=== PATIENT | female | born 1965 | race Caucasian/White ===

== ENCOUNTER → 2020-05-27 09:17 | Outpatient (BNVA) | payer OTHER, SELFPAY | PROVIDERS: PCP Internal Medicine; Visit Provider Nurse Practitioner ==

== ENCOUNTER → 2020-11-04 11:15 | Outpatient (BNVA) | payer OTHER, SELFPAY | PROVIDERS: PCP Internal Medicine | DX: N81.10 Cystocele, unspecified (principal) | CPT/HCPCS: 99202 ==

== ENCOUNTER → 2020-11-18 09:13 | Outpatient (BNVA) | payer OTHER, SELFPAY | PROVIDERS: PCP Internal Medicine; Visit Provider Nurse Practitioner ==

== ENCOUNTER 2021-02-08 10:15 | Outpatient (REF) | payer OTHER, SELFPAY ==
--- NOTE | ~2021-02-08 | MM_ITS ---
EXAMINATION: MM SCREENING DIGITAL BREAST TOMOSYNTHESIS, BILATERAL CLINICAL INFORMATION: Screening. Asymptomatic. The lifetime risk of breast cancer based on the Tyrer-Cuzick Model is 7%. COMPARISON: Mammography: 01/15/2020, 01/09/2019, 10/11/2017 TECHNIQUE: Digital breast tomosynthesis is performed in both the craniocaudal and mediolateral oblique views along with computer-aided detection (CAD). Synthesized 2D images are generated from the tomosynthesis. FINDINGS: There are scattered areas of fibroglandular density (ACR BI-RADS breast composition Category b). There are no significant masses, abnormal calcifications, or other abnormalities. The axilla and skin contours are unremarkable. No significant changes. MM/MM tomosynthesis screening BI IMPRESSION: No mammographic evidence of malignancy. ASSESSMENT: BI-RADS 1: Negative RECOMMENDATION: Routine annual mammography screening. This patient's information was entered into a reminder system with a target due date for their next mammogram.
== END 2021-02-08 10:16 | disposition home or self-care (01) ==
LOC: HO.MAMMO 10:15
PROVIDERS: Visit Provider Internal Medicine
DX: Z12.31 Encounter for screening mammogram for malignant neoplasm of breast (principal)
CPT/HCPCS: 77063; 77067

== ENCOUNTER 2021-04-10 16:41 | Outpatient (REF) | payer OTHER, SELFPAY ==
--- NOTE | ~2021-04-10 | XR_ITS ---
EXAMINATION: XR CERVICAL SPINE CLINICAL INFORMATION: Cervicalgia COMPARISON: None TECHNIQUE: 4 views of the cervical spine FINDINGS: The craniocervical junction is normal. The dens and atlantodental articulation are intact. The cervical vertebra have normal height. Alignment is normal. No fracture, subluxation or prevertebral soft tissue swelling. The disc spaces are normal. No evidence of degenerative disc disease. The facet joints are unremarkable. The visualized lung apices are normal. XR/XR cervical spine 3V IMPRESSION: No significant findings. No evidence of cervical spine degenerative disc disease, fracture or malalignment.
== END 2021-04-10 16:42 | disposition home or self-care (01) ==
LOC: HO.HMGCX 16:41
PROVIDERS: Visit Provider Physician Assistant Medical
DX: M54.2 Cervicalgia (principal)
CPT/HCPCS: 72040

== ENCOUNTER 2021-04-28 07:15 | Outpatient (REF) | payer OTHER, SELFPAY ==
[2021-04-28 07:46] LABS: Hematocrit 39.3 % (37.0-47.0); Hemoglobin 12.7 g/dl (12.0-16.0); Mean Corpuscular HGB Conc 32.3 g/dl (31.0-35.0); Mean Corpuscular Hemoglobin 26.2 pg (27.0-33.0); Mean Corpuscular Volume 81.2 fL (80.0-98.0); Mean Platelet Volume 9.8 fL (9.4-12.3); Platelet Count 323 X10*3/uL (160-400); Red Blood Count 4.84 X10*6/uL (4.20-5.50); Red Cell Distribution Width 13.8 % (11.0-16.0)
[2021-04-28 08:13] LABS: Anion Gap 9 (12-20); Blood Urea Nitrogen 15 mg/dL (9-16); Calcium 9.4 mg/dL (8.4-10.2); Carbon Dioxide 28 mmol/L (22-29); Chloride 108 mmol/L (96-108); Cholesterol 206 mg/dL; Estimated Glomerular Filt Rate > 60; Glucose Fasting 97 mg/dL (60-99); HDL Cholesterol 49 mg/dL; LDL Cholesterol Calculated 143 mg/dl; Potassium 4.2 mmol/L (3.3-5.1); Sodium 141 mmol/L (135-145); Triglycerides 70 mg/dL
[2021-04-28 08:46] LABS: Appearance Urine CLEAR; Color Urine YELLOW; Glucose Urine UA NEG (NEG); Leukocyte Esterase Urine NEG (NEG); Nitrite Urine NEG (NEG); Specific Gravity - Urine 1.025 (1.005-1.025); Urine Blood NEG (NEG); Urine Ketones NEG (NEG); Urine Protein NEG (NEG-TRACE)
== END 2021-04-28 07:16 | disposition home or self-care (01) ==
LOC: HO.LAB 07:15
PROVIDERS: PCP Internal Medicine; Visit Provider Nurse Practitioner Family
DX: Z00.00 Encounter for general adult medical examination without abnormal findings (principal); E78.00 Pure hypercholesterolemia, unspecified; M54.50 Low back pain, unspecified; M79.604 Pain in right leg; M79.605 Pain in left leg; I10 Essential (primary) hypertension
CPT/HCPCS: 36415; 80048; 80061; 81003; 85027

== ENCOUNTER 2022-02-13 08:04 | Outpatient (REF) | payer OTHER, SELFPAY ==
--- NOTE | ~2022-02-13 | MM_ITS ---
EXAMINATION: MM SCREENING DIGITAL BREAST TOMOSYNTHESIS, BILATERAL CLINICAL INFORMATION: Screening. Asymptomatic. The lifetime risk of breast cancer based on the Tyrer-Cuzick Model is 7%. COMPARISON: Mammography: 02/08/2021, 01/15/2020, 01/09/2019, 10/11/2017 TECHNIQUE: Digital breast tomosynthesis is performed in both the craniocaudal and mediolateral oblique views along with computer-aided detection (CAD). Synthesized 2D images are generated from the tomosynthesis. FINDINGS: There are scattered areas of fibroglandular density (ACR BI-RADS breast composition Category b). There are no significant masses, abnormal calcifications, or other abnormalities. Stromal markings are stable. No developing density. The axilla and skin contours are unremarkable. No significant changes. MM/MM tomosynthesis screening BI IMPRESSION: No mammographic evidence of malignancy. ASSESSMENT: BI-RADS 1: Negative RECOMMENDATION: Routine annual mammography screening. This patient's information was entered into a reminder system with a target due date for their next mammogram.
== END 2022-02-13 08:05 | disposition home or self-care (01) ==
LOC: HO.MAMMO 08:04
PROVIDERS: PCP Internal Medicine; Visit Provider Internal Medicine
DX: Z12.31 Encounter for screening mammogram for malignant neoplasm of breast (principal)
CPT/HCPCS: 77063; 77067

== ENCOUNTER 2023-02-19 07:46 | Outpatient (REF) | payer OTHER, SELFPAY | END 2023-02-19 07:47 | disposition home or self-care (01) | LOC: HO.MAMMO 07:46 | PROVIDERS: PCP Internal Medicine; Visit Provider Internal Medicine | DX: Z12.31 Encounter for screening mammogram for malignant neoplasm of breast (principal) | CPT/HCPCS: 77063; 77067 ==

== ENCOUNTER → 2023-02-19 08:00 | Outpatient (BNV) | payer OTHER, SELFPAY | PROVIDERS: PCP Internal Medicine; Visit Provider Radiology Diagnostic Radiology | DX: Z12.31 Encounter for screening mammogram for malignant neoplasm of breast (principal) | CPT/HCPCS: 77063; 77067 ==

== ENCOUNTER 2024-02-25 07:53 | Outpatient (REF) | payer OTHER, SELFPAY ==
--- NOTE | ~2024-02-25 | MM_ITS ---
EXAMINATION: MM SCREENING DIGITAL BREAST TOMOSYNTHESIS, BILATERAL CLINICAL INFORMATION: Screening. Asymptomatic. COMPARISON: Mammography: Comparison is made with available priors TECHNIQUE: Digital breast mammography with tomosynthesis is performed in both the craniocaudal and mediolateral oblique views along with computer-aided detection (CAD). FINDINGS: There are scattered areas of fibroglandular density (ACR BI-RADS breast composition Category b). There are no significant masses, abnormal calcifications, or other abnormalities. MM/MM tomosynthesis screening BI IMPRESSION: No mammographic evidence of malignancy. ASSESSMENT: BI-RADS BI-RADS 1 - Negative RECOMMENDATION: Routine annual mammography screening. 1 year F/U This examination should not preclude the clinical evaluation of a suspicious palpable abnormality. This patient's information was entered into a reminder system with a target due date for their next mammogram. Electronically signed by: Yumiko Merino DO 03/07/2024 09:13 AM [facility]
== END 2024-02-25 07:54 | disposition home or self-care (01) ==
LOC: HO.MAMMO 07:53
PROVIDERS: PCP Internal Medicine; Visit Provider Internal Medicine
DX: Z12.31 Encounter for screening mammogram for malignant neoplasm of breast (principal)
CPT/HCPCS: 77063; 77067

== ENCOUNTER → 2024-02-25 08:00 | Outpatient (BNV) | payer OTHER, SELFPAY | PROVIDERS: PCP Internal Medicine; Visit Provider Internal Medicine | DX: Z12.31 Encounter for screening mammogram for malignant neoplasm of breast (principal) | CPT/HCPCS: 77063; 77067 ==

== ENCOUNTER 2025-01-04 11:59 | Outpatient (REF) | payer OTHER, SELFPAY ==
[2025-01-04 13:26] LABS: Appearance Urine Clear; Glucose Urine UA Negative (Negative); PH 5.0 (5.0-9.0); Specific Gravity - Urine >= 1.030 (1.005-1.025); UMIC TRIGGER UACC YES
[2025-01-04 14:09] LABS: UACC Culture Trigger YES
== END 2025-01-04 12:00 | disposition home or self-care (01) ==
LOC: HO.LAB 11:59
PROVIDERS: Nurse Practitioner Family; PCP Internal Medicine
DX: R30.0 Dysuria (principal); Z13.89 Encounter for screening for other disorder
CPT/HCPCS: 81001; 81003; 87086; 99212

== ENCOUNTER 2025-01-04 11:59 | Outpatient (AMB) | payer OTHER, SELFPAY ==
--- NOTE | 2025-01-04 12:00 | MHC.OFFWIV ---
Intake Vital Signs 01/04/25 12:01 Height 5 ft 3 in Weight 184 lb BMI 32.6 BP 100/68 Blood Pressure Location Lt brachial Position Sitting Pulse 76 Pulse Source Pulse Oximeter Temp 98.0 F Temp Source Oral Pulse Oximetry (%) 97 Oxygen Delivery Method Room Air Intake Visit Reasons: EP pain during urination Intake Note: pt presents with dysuria starting yesterday Patient Tobacco Use Status: Never used Tobacco Allergies Penicillins (PENICILLINS) Allergy (Intermediate, Verified 01/04/25 12:07) RASH Do you need a note to return to daycare/school/sports/work: No HPI HPI Comments History of Present Illness Details 59 y/o Female patient who presents to the walk in clinic with c/o Burning with urination since yesterday. Reports Lower abdominal cramping associated with Burning everytime she urinates. Denies Vaginal discharge. Denies Fevers, Chills, Nausea or Vomiting. Pt reports that she is already on Oral Abx for 14 days - she is on second week. Her PCP prescribed them for Unknown infection inside her stomach . No available records for review - she is not [facility] [place] Patient - [facility] P[facility] at [facility]. 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 Review of Systems Const All systems reviewed & are unremarkable except as noted in HPI and below Physical Exam Vital Signs: Last Vital Signs Temp 98.0 F 01/04/25 12:01 Pulse 76 01/04/25 12:01 BP 100/68 01/04/25 12:01 Pulse Ox 97 01/04/25 12:01 Oxygen Delivery Method Room Air 01/04/25 12:01 BMI result Body Mass Index 32.6 Const General: no acute distress Nutritional Appearance: overweight Orientation/consciousness: patient oriented x3 Resp Effort & Inspection: normal respiratory effort Auscultation: clear to auscultation bilaterally Cardio Heart sounds: S1 normal heart sound present and S2 normal heart sound present Other: Deferred Pelvic Exam. General: Yes no CVA tenderness Back/Spine/Pelvis Back: no CVA tenderness Neuro General: patient oriented x3, gait normal and moves all extremities Psych Speech and movement: Normal speech and movement present Results AMB Urinalysis, Automated UA Leukoctes 70 Brian/uL Last Edit by Emani Bryant MA on 01/04/25 12:22 1+ Emani Bryant 01/04/25 12:22 UA Nitrite Negative Last Edit by Emani Bryant MA on 01/04/25 12:22 UA Urobilinogen 0.2 mg/dL Last Edit by Emani Bryant MA on 01/04/25 12:22 UA Protein 15 mg/dL Last Edit by Emani Bryant MA on 01/04/25 12:22 UA pH 6.0 Last Edit by Emani Bryant MA on 01/04/25 12:22 UA Blood 200 Maxi/uL Last Edit by Emani Bryant MA on 01/04/25 12:22 3+ Emani Bryant 01/04/25 12:22 UA Specific Benton 1.030 Last Edit by Emani Bryant MA on 01/04/25 12:22 UA Ketone Negative Last Edit by Emani Bryant MA on 01/04/25 12:22 UA Bilirubin 0 mg/dL Last Edit by Emani Bryant MA on 01/04/25 12:22 UA Glucose 0 mg/dL Last Edit by Emani Bryant MA on 01/04/25 12:22 Results Reviewed Results Reviewed: Laboratory Last Values Urine pH (Auto) 6.0 01/04/25 12:20 Specific Benton (Auto) 1.030 01/04/25 12:20 Urine Protein (Auto) 15 mg/dL H 01/04/25 12:20 Glucose (UA)(Auto) 0 mg/dL 01/04/25 12:20 Urine Ketones (Auto) Negative 01/04/25 12:20 Urine Blood (Auto) 200 Maxi/uL H* 01/04/25 12:20 Urine Nitrite (Auto) Negative 01/04/25 12:20 Urine Bilirubin (Auto) 0 mg/dL 01/04/25 12:20 Urine Urobilinogen (Auto) 0.2 mg/dL 01/04/25 12:20 Leukocyte Esterase (Auto) 70 Brian/uL H* 01/04/25 12:20 Assessment & Plan Assessment & Plan (1) Dysuria: Code(s): R30.0 - Dysuria Plan: Symptoms could possibly from Vaginal Yeast Infection due to current Abx Use. Sent Urine for Culture and Sensitivity. Urinalysis in the office shows; +70 LEUK, + Blood - NIT Orders: Orders AMB Urinalysis Automated Today Tiffany Spears PA-C Z13.9 - Encounter for screening, unspecified UA CC w/rflx Micro + Cult Today Rebeca Wetzel NP R30.0 - Dysuria Medications: New fluconazole TAKE 1 TABLET NOW, MAY REPEAT ANOTHER DOSE IN 3 DAYS (OR 72 HOURS). 150 mg PO DAILY 2 tabs 2RF Rebeca Wetzel NP Coding Level of Care Code Est Pt Level 4 (73578) Diagnoses Dysuria R30.0 Time Spent (min) 20
[2025-01-04 12:01] VITALS: BP 100/68; PULSE 76; TEMP 36.7; O2SAT 97; BMI 32.6
--- OUTSIDE RECORDS SUMMARY | 2025-01-04 14:17 | XMS_ITS | Encounter Summary ---
Author Organization [employer] Address [address] [place] [address] Care Team Providers Care Die Tripper Name Role Phone Unavailable Primary Care Provider Unavailabl e Encounter Details Date Type Department Care Team (Latest Contact Info) Description 06/12/2019 Abstract [facility] CONVERSIONS Dental, Provider, DDS Social History Tobacco Use Types Packs/Day Years Used Date Smoking Tobacco: Never Assessed Comments Unknown Sex and Gender Information Value Date Recorded Sex Assigned at Female 02/16/2022 10:18 AM EDT Legal Sex Female 10:18 AM EDT Gender Identity Female 08/26/2022 10:39 AM EDT Sexual Orientation Straight 12/08/2023 2: 53 PM EDT documented as of this encounter Plan of Treatment Not on file documented as of this encounter Visit Diagnoses Not on filedocumented in this encounter
--- OUTSIDE RECORDS SUMMARY | 2025-01-04 14:17 | XMS_ITS | Clinical Summary ---
Author Organization 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 Active mirtazapine (REMERON) 30 mg tablet Take 1 tablet (30 mg total) by mouth. at bedtime 4 Active prazosin (MINIPRESS) 1 mg capsule Take 1 capsule (1 mg total) by mouth. 4 Active aspirin 81 mg EC tablet Take 1 tablet (81 mg total) by mouth 2 (two) times a day. 180 each 1 5 03/03/20 25 Active nystatin-triamcino lone (MYCOLOG II) cream Apply thin layer to affected area BID for 2 weeks then stop. Avoid face and groin. 30 g 5 Active pantoprazole (PROTONIX) 40 mg EC tablet Take 1 tablet (40 mg total) by mouth 1 (one) time each day before breakfast. Do not crush, chew, or split. 90 each 3 5 09/05/19 26 Active cyclobenzaprine (FLEXERIL) 10 mg tablet Take 1 tablet (10 mg total) by mouth at bedtime as needed for muscle spasms. 30 tablet 5 06/16/19 26 Active celecoxib (CeleBREX) 200 mg capsuleIndications :Status post total right knee replacement Take 1 capsule (200 mg total) by mouth 2 (two) times a day with meals. 60 each 2 5 Active acetaminophen (TYLENOL) 500 mg tabletIndications: Status post total right knee replacement Take 2 tablets (1,000 mg total) by mouth every 8 (eight) hours. 100 each 2 5 Active gabapentin (NEURONTIN) 300 mg capsuleIndications :Status post total right knee replacement Take 1 capsule (300 mg total) by mouth 2 (two) times a day. 60 each 2 5 Active betamethasone dipropionate (DIPROSONE) 0.05 % creamIndications:E czema of lower leg Apply topically 2 (two) times a day. 30 g 2 5 10/24/19 26 Active rizatriptan (MAXALT) 10 mg tablet Take 1 tablet (10 mg total) by mouth 1 (one) time each day if needed for migraine. May repeat in 2 hours if needed - 9 tablet 1 5 Active bisacodyL (DULCOLAX) 5 mg EC tablet Take 2 tablets (10 mg total) by mouth at bedtime. 180 tablet 5 Active diclofenac (VOLTAREN) 1 % topical gel Apply 4 g topically 4 (four) times a day. 100 g 2 5 Active ondansetron (ZOFRAN) 8 mg tablet Take 1 tablet (8 mg total) by mouth every 8 (eight) hours if needed for nausea or vomiting. 20 tablet 5 Active metroNIDAZOLE (FLAGYL) 500 mg tabletIndications: Helicobacter pylori gastritis Take 1 tablet (500 mg total) by mouth 2 (two) times a day for 14 days. Do not use mouth wash or consume alcohol until 48 hours after last dose 28 each 5 01/11/20 25 Active tetracycline (ACHROMYCIN,SUMYCI N) 500 mg capsuleIndications :Helicobacter pylori gastritis Take 1 capsule (500 mg total) by mouth 4 (four) times a day for 14 days. Avoid sun while taking 56 capsule 5 01/11/20 25 Active omeprazole (PriLOSEC) [address] capsuleIndications :Helicobacter pylori gastritis Take 1 capsule (40 mg total) by mouth 2 (two) times a day for 14 days. Do not crush or chew. 28 each 5 01/11/20 25 Active bismuth subsalicylate (PEPTO BISMOL) 262 mg chewable tabletIndications: Helicobacter pylori gastritis Chew 2 tablets (524 mg total) 4 (four) times a day for 14 days. 112 each 5 01/11/20 25 Active Active Problems Problem Noted Date Diagnosed Date Pre-syncope 08/21/2024 Intertrigo 08/21/2024 Status post total right knee replacement 024 Assessment & Plan (11/09/2024 4:01 PM EDT): OA of both knees, underwent a TKR in July, complains of persistent pain. She follows with ortho. Takes Celebrex as needed. Recommended diclofenac gel to decrease the use of oral NSAIDs. Periodontal disease 02/04/2024 Missing teeth, acquired 02/04/2024 Localized gingival recession 02/04/2024 Dental calculus 02/04/2024 Bleeding gums 02/04/2024 Primary osteoarthritis of left knee 07/12/2023 Primary osteoarthritis of right knee 07/12/2023 Assessment & Plan (11/09/2024 4:01 PM EDT): As above Insomnia 08/04/2021 Migraine without status migrainosus, not intract able 08/04/2021 Other mixed anxiety disorders 08/04/2021 Pain in joint involving ankle and foot 2 Contact dermatitis 09/21/2011 Encounters Date Type Department Care Team Description 01/04/2025 Telephone Adult Medicine [address] [phone] Yudi Mckeon MD 12/28/2024 Telephone Gastroenterology [facility] 175 [facility] [address] [address] Janee Fuentes NP 12/27/2024 Telephone Gastroenterology [facility] 175 [facility] 175 [facility] [address] [place] [address] Jaiden Forman DO 12/26/2024 8:03 AM EDT Anesthesia Event [facility] [address] [place] [address] Jhoan Franks MD 12/26/2024 6:56 AM EDT - 12/26/2024 11:59 PM EDT Hospital Encounter [facility] [address] [place] [address] Jaiden Forman DO Chang, Ling, CRNA Spencer, Mark A, MD Epigastric abdominal pain Discharge Disposition: Home or Self Care 11/20/2024 Telephone Gastroenterology - [place] 175 [facility] 175 [facility] [address] [place] [address] Jaiden Forman DO 11/09/2024 12:00 PM EDT Office Visit Adult Medicine [address] [phone] Yudi Mckeon MD Adult general medical examination (Primary Dx); Encounter for lipid screening for cardiovascular disease; Need for vaccination against Streptococcus pneumoniae; Status post total right knee replacement; Primary osteoarthritis of right knee 11/02/2024 9:00 AM EDT Treatment Outpatient [address] [phone] Leo Velez, PT Acute back pain with sciatica, right (Primary Dx) 10/26/2024 11:30 AM EDT Treatment Outpatient [facility] - [address] [phone] Celeste Khanna, JOB ESTIMATOR Acute back pain with sciatica, right (Primary Dx) 10/23/2024 3:30 PM EDT Treatment Outpatient [address] [phone] Celeste Khanna, JOB ESTIMATOR Acute back pain with sciatica, right (Primary Dx) 10/19/2024 10:30 AM EDT Treatment Outpatient [address] [phone] Celeste Khanna, JOB ESTIMATOR Acute back pain with sciatica, right (Primary Dx) 10/17/2024 10:00 AM EDT Treatment Outpatient [address] [phone] Celeste Khanna, JOB ESTIMATOR Acute back pain with sciatica, right (Primary Dx) 10/16/2024 9:00 AM EDT Consult Gastroenterology [facility] 175 [facility] [address] [address] Janee Fuentes, MEGAN Epigastric abdominal pain (Primary Dx); Constipation, unspecified constipation type; Personal history of hyperplastic colon polyps; Diverticulosis of sigmoid colon 10/16/2024 Telephone Gastroenterology [facility] [address] [address] Janee Fuentes, MEGAN 10/12/2024 3:30 PM EDT Treatment Outpatient [address] [phone] Celeste Khanna, JOB ESTIMATOR Acute back pain with sciatica, right (Primary Dx) 10/10/2024 9:30 AM EDT Treatment Outpatient [address] [phone] Leo Velez, PT Acute back pain with sciatica, right (Primary Dx) 10/06/2024 9:30 AM EDT Treatment Outpatient [address] [phone] Celeste Khanna, JOB ESTIMATOR Acute back pain with sciatica, right (Primary Dx) from Last 3 Months Immunizations Name Administration Dates Next Due Influenza Quadravalent, MDCK , 0.5ml, preservative free (Flucelvax) 6mo and older 01/25/2023 Influenza Quadravalent, MDCK , 0.5ml, with preservative (Flucelvax) 6mo and older 04/21/2021 Pneumococcal conjugate 20 va lent (Prevnar 20, PCV 20) 2mo and older 11/09/2024 Tdap Tetanus diptheria acell ular pertussis (Boostrix; Adacel) 7yo and older 10/29/2023,03/03/2013 Surgical History Surgery Date Site/Laterality Comments OTHER SURGICAL HISTORY PROCEDURE: DENIES PREVIOUS SURGERY HYSTERECTOMY BLADDER SUSPENSION Medical History Medical History Date Comments Migraine headache DX:Migraine he adache Insomnia DX:Insomnia Obesity DX:Obesity Anxiety Joint pain Arthritis Family History Medical History Relation Name Comments Other cancer Neg Hx Social History Tobacco Use Types Packs/Day Years Used Date Smoking Tobacco: Never Smokeless Tobacco: Never Tobacco Cessation:Counseling Given: Not Answered Alcohol Use Standard Drinks/Week Comments Never 0 (1 standard drink = 0.6 oz pur e alcohol) Housing Instability Answer Date Recorde d Are you worried that in the next 2 months you may not have stable housing? No 08/01/2024 Food Access & Nutrition Answer Date Rec orded Do you have access to a vari ety of food including fruits and vegetables? No 08/01/2024 Health Literacy Answer Date Recorded How often do you need to hav e someone help you when you read instructions, pamphlets, or other written material from your doctor or pharmacy? Never 08/01/2024 Caregiver: How often do you need to have someone help you when you read instructions, pamphlets, or other written material from your doctor or pharmacy? Not on file 08/01/2024 Financial Risk Answer Date Recorded How hard is it for you to pa y for the very basics like food, housing, medical care, and air conditioning / heating? Not very hard 08/01/2024 Transportation Answer Date Recorded Has the lack of transportati on kept you from meetings, work, or from getting things needed for daily living? No Has the lack of transportati on kept you from medical appointments or from getting medications? No 08/01/2024 Social Isolation Answer Date Recorded How often do you feel lonely or isolated from th ose around you? Never 08/01/2024 Food Risk Answer Date Recorded Within the past 12 months we worried whether our food would run out before we got money to buy more. Never true 08/01/2024 Within the past 12 months th e food we bought just didn't last and we didn't have money to get more. Never true 08/01/2024 Dependent Care Answer Date Recorded Do you need help finding or paying for care for your loved ones. For example, child adolescent care or elderly care for an older adult? No 08/01/2024 Education Answer Date Recorded Do you think completing more education or training, like finishing a GED, going to college, or learning a trade, would be helpful for you? N/A 08/01/2024 Employment and Income Answer Date Recor ded During the last four weeks, have you been actively looking for work? No 08/01/2024 Living Situation Answer Date Recorded What is your living situation? 0 08/01/2024 Interpersonal Safety Answer Date Record ed Physical Abuse 12/26/2024 Verbal Abuse 12/26/2024 Comments No Sex and Gender Information Value Date Recorded Sex Assigned at Female 03/06/2024 6:08 AM EST Legal Sex Female 6:18 PM EST Gender Identity Female 03/06/2024 6:08 AM EST Sexual Orientation Straight 03/06/2024 6: 08 AM EST Obstetrics History Last Filed Vital Signs Vital Sign Reading Time Taken Comments Blood Pressure 108/78 12/26/2024 8:38 AM EDT Pulse 67 12/26/2024 8:38 AM EDT Temperature 35.9 C (96.7 F) 12/26/2024 8:18 AM EDT Respiratory Rate 17 12/26/2024 8:38 AM EDT Oxygen Saturation 98% 12/26/2024 8:38 AM EDT Inhaled Oxygen Concentration - - Weight 81.6 kg (180 lb) 12/26/2024 7:17 AM EDT Height 160 cm (5' 3 ) 12/26/2024 7:17 AM EDT Body Mass Index 31.89 12/26/2024 7:17 AM EDT Plan of Treatment Upcoming Encounters Date Type Department Care Team (Late st Contact Info) Description 02/05/2025 8:30 AM EDT Office Visit Adult Medicine [address] [phone] Yudi Guillen MD [address] [place] [address] 02/28/2025 9:30 AM EST Office Visit Orthopedic Surgery - [address] [phone] Clem Avelar MD 175 [facility] [address] [place] [address] 04/10/2025 10:30 AM EST Consult Bariatric Surgery - [place] 175 [facility] [address] [place] [phone] Lucie Davis MD [address] [place] [phone] 11/13/2025 3:00 PM EDT Office Visit Adult Medicine [facility] [address] [place] [address] Yudi Guillen MD [address] [place] [address] Health Maintenance Due Date Last Done Comments Cervical Cancer Screening: Pap Smear 10/07/1988 HIV Screening 03/29/2022 Depression Screening 04/19/2024 10/29/2023 COVID-19 Vaccine ( season) 2024 05/29/2021, 12/17/2020, 11/26/2020 Influenza Vaccine (#1) 2024 , 01/25/2023, 04/21/2021, Additional history exists Social Influencers of Health Screening 08/01/2025 08/01/2024 Breast Cancer Screening 02/24/2026 02/25/2024 Colorectal Cancer Screening: Colonoscopy 08/15/2028 08/15/2018, 08/15/2018 Cholesterol Screening (Lipid Panel) 11/17/2029 11/17/2024, 10/29/2023, 10/29/2023 DTaP,Tdap,and Td Vaccines (4 - Td or Tdap) 10/28/2033 10/29/2023, 03/03/2013, 04/08/2006 RSV Immunization Adult Patients (1 - 1-dose 75+ series) 10/07/2042 Hepatitis B Vaccines Completed 01/13/2007, 08/03/2006, 07/01/2006 Hepatitis C Screening Completed 12/05/2021 Zoster Vaccines Completed 01/15/2023, 09/03/2022 Pneumococcal Vaccine: 50+ Years Completed 11/09/2024 HIB Vaccines Aged Out No longer eligi ble based on patient's age to complete this topic HPV Vaccines Aged Out No longer eligi ble based on patient's age to complete this topic Hepatitis A Vaccines Aged Out No long er eligible based on patient's age to complete this topic IPV Vaccines Aged Out No longer eligi ble based on patient's age to complete this topic MMR Vaccines Aged Out No longer eligi ble based on patient's age to complete this topic Meningococcal ACWY Vaccine Aged Out N o longer eligible based on patient's age to complete this topic Meningococcal B Vaccine Aged Out No l onger eligible based on patient's age to complete this topic RSV Immunization Patients Under 20 months Aged Out No longer eligible based on patient's age to complete this topic Varicella Vaccines Aged Out No longer eligible based on patient's age to complete this topic Medical Devices Implanted Type Area Car Washer Device Identifier Shelf Expiration Date Model / Serial / Lot Cement Bone Simplex Full Dose - [employer]one - [id number] Implanted:Qty : 2 on 03/06/2024 by Clem Avelar MD at [facility] Bone Cement Right: Knee [employer] [id number] 02/16/2026 6191-1-001 / NONE / [id number] Knee Psn Fem Ps Cmt Ccr Nrw Sz8 R - [employer]one - [id number] Implanted:Qty : 1 on 03/06/2024 by Clem Avelar MD at 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 Joints Knee Right: Knee [employer] [id number] 12/19/2033 [id number] / NONE / [id number] All Poly Patella 35mm - [employer]one - [id number] Implanted:Qty : 1 on 03/06/2024 by Clem Avelar MD at [facility] Joints Knee Right: Knee [employer] [id number] 09/01/2028 [id number] / NONE / [id number] Knee Psn Asf Ps 12mm Ve R 6-9 Ef - Sn/A - [id number] Implanted:Qty : 1 on 03/06/2024 by Clem Avelar MD at [facility] Joints Knee Right: Knee [employer] [id number] 11/15/2026 [id number] / N/A / [id number] Surgical Mesh Sling Implants Surgical Mesh Sling Implants N/A: Bladder Description:BLADDER MESH Procedures Procedure Name Priority Date/Time Associated Diagnosis Comments EGD Routine 12/26/2024 8:17 AM EDT Epigastric abdominal pain TISSUE EXAM Routine 12/26/2024 8:12 AM EDT Epigastric abdominal pain LIPID PANEL WITH REFLEX TO DIRECT LDL Routine 11/17/2024 7:45 AM EDT Encounter for lipid screening for cardiovascular disease MG MAMMO DIGITAL DIAGNOSTIC BILAT Routine 02/25/2024 7:51 AM EST DEPRESSION SCREENING Routine 10/29/2023 HEPATITIS C SCREENING Routine 12/05/2021 COLONOSCOPY Routine 08/15/2018 from Last 3 Months or Most Recently Relevant to Health Maintenance Results * EGD Anesthesia - MAC; [facility] ENDOSCOPY (12/26/2024 8:17 AM EDT) Anatomical Region Laterality Modality Endoscopy 12/26/2024 7:55 AM EDT Impressions 12/26/2024 8:18 AM EDT - Non-bleeding duodenal ulcers with no stigmata of bleeding. Biopsied. - Normal stomach. Biopsied. Recommendation: - Discharge patient to home. - Resume previous diet. - Continue present medications. - Await pathology results. - Omeprazole 40 mg daily recommended. Today's EGD findings explain her epigastric discomfort. Narrative 12/26/2024 8:18 AM EDT [facility] GI Patient Name: Kathleen Perez Procedure Date: 12/26/2024 7:55 AM Date of : 1965 Age: 59 Gender: Female Note Status: Finalized Attending MD: Jaiden Forman DO, [id number] Procedure Date No Time: 12/26/2024 Procedure: Upper GI endoscopy Indications: Epigastric abdominal pain Providers: Jaiden Forman DO Referring MD: Yudi medina MD Medicines: Monitored Anesthesia Care Complications: No immediate complications. Estimated blood loss: Minimal. Estimated Blood Loss: Estimated blood loss was minimal. Procedure: Pre-Anesthesia Assessment: - - Prior to the procedure, a History and Physical was performed, and patient medications and allergies were reviewed. The patient is competent. The risks and benefits of the procedure and the sedation options and risks were discussed with the patient. All questions were answered and informed consent was obtained. Patient identification and proposed procedure were verified by the physician, the nurse, the anesthesiologist, the sales engineer account manager and the pbx technician in the pre-procedure area in the endoscopy suite. Mental Status Examination: alert and oriented. Airway Examination: normal oropharyngeal airway and neck mobility. Respiratory Examination: clear to auscultation. CV Examination: normal. Prophylactic Antibiotics: The patient does not require prophylactic antibiotics. Prior Anticoagulants: The patient has taken no anticoagulant or antiplatelet agents. ASA Grade Assessment: II - A patient with mild systemic disease. After reviewing the risks and benefits, the patient was deemed in satisfactory condition to undergo the procedure. The anesthesia plan was to use monitored anesthesia care (MAC). Immediately prior to administration of medications, the patient was re-assessed for adequacy to receive sedatives. The heart rate, respiratory rate, oxygen saturations, blood pressure, adequacy of pulmonary ventilation, and response to care were monitored throughout the procedure. The physical status of the patient was re-assessed after the procedure. After obtaining informed consent, the endoscope was passed under direct vision. Throughout the procedure, the patient's blood pressure, pulse, and oxygen saturations were monitored continuously. The Endoscope was introduced through the mouth, and advanced to the third part of duodenum. The upper GI endoscopy was accomplished without difficulty. The patient tolerated the procedure well. Findings: Two non-bleeding superficial duodenal ulcers with no stigmata of bleeding were found in the duodenal bulb. The largest lesion was 4 mm in largest dimension. Biopsies were taken with a cold forceps for histology. The Z-line was irregular and was found 38 cm from the incisors. Biopsies were taken with a cold forceps for histology. Estimated blood loss was minimal. Wide Area Transepithelial Sampling (WATS-3D [place] Biopsy) was performed for histology and samples sent for Computer-Assisted 3-Dimensional analysis. Estimated blood loss was minimal. The stomach was normal. Biopsies were taken with a cold forceps for histology. Estimated blood loss was minimal. Procedure Code(s): --- Professional --- 11225, Esophagogastroduodenoscopy, flexible, transoral; with biopsy, single or multiple Diagnosis Code(s): --- Professional --- K26.9, Duodenal ulcer, unspecified as acute or chronic, without hemorrhage or perforation R10.13, Epigastric pain CPT copyright 2020 [employer]. All rights reserved. The codes documented in this report are preliminary and upon shipping manager review may be revised to meet current compliance requirements. JAIDEN Forman DO 12/26/2024 8:18:11 AM This report has been signed electronically.Jaiden Forman DO Number of Addenda: 0 Note Initiated On: 12/26/2024 7:55 AM Scope In: Scope Out: Endoscopy Department at [facility] - [address] [place] [id number] Procedure Note Jaiden Forman DO - 12/26/2024 [facility] Patient Name: Kathleen Perez Procedure Date: 12/26/2024 7:55 AM Date of : 1965 Age: 59 Gender: Female Note Status: Finalized Attending MD: Jaiden Forman DO, [id number] Procedure Date No Time: 12/26/2024 Procedure: Upper GI endoscopy Indications: Epigastric abdominal pain Providers: Jaiden Forman DO Referring MD: Yudi medina MD Medicines: Monitored Anesthesia Care Complications: No immediate complications. Estimated blood loss: Minimal. Estimated Blood Loss: Estimated blood loss was minimal. Procedure: Pre-Anesthesia Assessment: - - Prior to the procedure, a History and Physicalwas performed, and patient medications and allergieswere reviewed. The patient is competent. The risks and benefits of the procedure and the sedation optionsand risks were discussed with the patient. Allquestions were answered and informed consent was obtained. Patient identification and proposed procedure were verified by the physician, the nurse, the anesthesiologist, the sales engineer account manager and thetechnician in the pre-procedure area in the endoscopy suite. Mental Status Examination: alert and oriented.Airway Examination: normal oropharyngeal airway and neck mobility. Respiratory Examination: clear to auscultation. CV Examination: normal. Prophylactic Antibiotics: The patient does not requireprophylactic antibiotics. Prior Anticoagulants: The patient has taken no anticoagulant or antiplatelet agents. ASA Grade Assessment: II - A patient with mild systemic disease. After reviewing the risks and benefits,the patient was deemed in satisfactory condition to undergo the procedure. The anesthesia plan was touse monitored anesthesia care (MAC). Immediately priorto administration of medications, the patient was re-assessed for adequacy to receive sedatives. The heart rate, respiratory rate, oxygen saturations, blood pressure, adequacy of pulmonary ventilation,and response to care were monitored throughout the procedure. The physical status of the patient was re-assessed after the procedure. After obtaining informed consent, the endoscope was passed under direct vision. Throughout theprocedure, the patient's blood pressure, pulse, and oxygen saturations were monitored continuously. TheEndoscope was introduced through the mouth, and advanced tothe third part of duodenum. The upper GI endoscopy was accomplished without difficulty. The patienttolerated the procedure well. Findings: Two non-bleeding superficial duodenal ulcers withno stigmata of bleeding were found in the duodenalbulb. The largest lesion was 4 mm in largest dimension. Biopsies were taken with a cold forceps forhistology. The Z-line was irregular and was found 38 cm fromthe incisors. Biopsies were taken with a cold forcepsfor histology. Estimated blood loss was minimal. WideArea Transepithelial Sampling (WATS-3D [place] Biopsy) was performed for histology and samples sent for Computer-Assisted 3-Dimensional analysis. Estimated blood loss was minimal. The stomach was normal. Biopsies were taken with a cold forceps for histology. Estimated blood losswas minimal. Procedure Code(s): --- Professional --- 66893, Esophagogastroduodenoscopy, flexible, transoral; with biopsy, single or multiple Diagnosis Code(s): --- Professional --- K26.9, Duodenal ulcer, unspecified as acute or chronic, without hemorrhage or perforation R10.13, Epigastric pain CPT copyright 2020 [employer]. All rights reserved. The codes documented in this report are preliminary and upon shipping manager reviewmay be revised to meet current compliance requirements. AJIDEN Forman DO 12/26/2024 8:18:11 AM This report has been signed electronically.Jaiden Forman DO Number of Addenda: 0 Note Initiated On: 12/26/2024 7:55 AM Scope In: Scope Out: Endoscopy Department at [facility] - [address] [place] [id number] IMPRESSION: - Non-bleeding duodenal ulcers with no stigmata of bleeding. Biopsied. - Normal stomach. Biopsied. Recommendation: - Discharge patient to home. - Resume previous diet. - Continue present medications. - Await pathology results. - Omeprazole 40 mg daily recommended. Today's EGD findings explain her epigastric discomfort. Jaiden Forman DO GI~PROCEDURE ORDERABLES Final Re sult * Tissue exam (12/26/2024 8:12 AM EDT) Final Diagnosis A. Small Intestine, Duodenum, biopsy: - Duodenal mucosa with erosion, acute inflammation, moderate villi blunting, focal foveolar metaplasia, Brayan gland hyperplasia, and prominent reactive lymphoid follicle, compatible with erosive peptic duodenitis. - Negative for increased intraepithelial lymphocytes. B. Stomach, random gastric biopsy: - Gastric antral mucosa with active chronic gastritis. - Helicobacter pylori organisms are morphologically identified. C. Esophagus, G-E junction biopsy: - Cardiac-type columnar mucosa with focal intestinal metaplasia. - Negative for dysplasia. Note: Part C, clinicopathologic correlation is recommended to assess if intestinal metaplasia corresponds to Mistry's mucosa versus gastric mucosa with intestinal metaplasia. 12/27/2024 10:46 AM EDT [facility] Gross Description A. Small Intestine, Duodenum, biopsy: Labeled duodenum biopsy . Received in formalin are three irregular santana mucosal tissue fragments, each measuring approximately 0.1 cm in greatest dimension, which are wrapped in paper and submitted in toto in one cassette, three pieces, multiple levels on one slide. B. Stomach, random gastric biopsy: Labeled stomach random . Received in formalin are two irregular santana mucosal tissue fragments, each measuring approximately 0.3 cm in greatest dimension, which are wrapped in paper and submitted in toto in one cassette, two pieces, multiple levels on one side. C. Esophagus, G-E junction biopsy: Labeled esophagus GE junction . Received in formalin are two irregular pink-white mucosal tissue fragments, each measuring approximately 0.2 cm in greatest dimension, which are wrapped in paper and submitted in toto in one cassette, two pieces, multiple levels on one slide. RJ 12/27/2024 10:46 AM EDT [facility] Disclaimer Unless otherwise specified, all tissue is 10% NB formalin fixed and paraffin embedded. 12/27/2024 10:46 AM EDT [facility] Tissue Duodenal structure / Unknown 12/26/2024 8:12 AM EDT 12/26/2024 10:42 AM EDT Tissue specimen (specimen) Stomach structure / Unknown 12/26/2024 8:13 AM EDT 12/26/2024 10:42 AM EDT Tissue specimen (specimen) Esophageal structure / Unknown 12/26/2024 8:14 AM EDT 12/26/2024 10:42 AM EDT Jaiden Forman DO LAB PATHOLOGY ORDERABLES Final R esult [facility] [address] [place] [address], * (ABNORMAL) Lipid panel with reflex to direct LDL (11/17/2024 7:45 AM EDT) Cholesterol 233(H) 0 - 200 mg/dL LAB CHEMISTRY METHOD 11/17/2024 10:39 AM EDT [facility] Triglycerides 112 0 - 150 mg/dL LAB CHEMISTRY METHOD 11/17/2024 10:39 AM EDT [facility] HDL 51 >=40 mg/dL LAB CHEMISTRY METHOD 11/17/2024 10:39 AM EDT [facility] LDL Calculated 160(H) 0 - 100 mg/dL LAB CHEMISTRY METHOD 11/17/2024 10:39 AM EDT [facility] VLDL Cholesterol Dickson 22.4 mg/dL LAB CHEMISTRY METHOD 11/17/2024 10:39 AM EDT [facility] Non HDL Chol. (LDL+VLDL) 182(H) <145 mg/dL LAB CHEMISTRY METHOD 11/17/2024 10:39 AM EDT [facility] Chol/HDL Ratio 4.6(H) 0.0 - 4.4 LAB CHEMISTRY METHOD 11/17/2024 10:39 AM EDT [facility] Blood Venous blood specimen / Unknown Venipuncture / Unknown 11/17/2024 7:45 AM EDT 11/17/2024 7:45 AM EDT Yudi Guillen MD LAB BLOOD ORDERABL ES Final Result [facility] [address] [place] [address], [place] [phone] * MG Mammo Digital Diagnostic bilat (02/25/2024 7:51 AM EST) Anatomical Region Laterality Modality Breast Bilateral Mammography Yudi Guillen MD IMG BI PROCEDURES Final Result * Depression Screening (10/29/2023) Depression Screening abstracted Historical Provider HEALTH MAINTENANCE Final Result * Hepatitis C Screening (12/05/2021) Hepatitis C Screening abstracted Historical Provider HEALTH MAINTENANCE Final Result * Colonoscopy (08/15/2018) HM Colonoscopy no interpretation , abstracted Anatomical Region Laterality Modality Other us Historical Provider HEALTH MAINTENANCE Final Result from Last 3 Months or Most Recently Relevant to Health Maintenance Insurance [facility] [employer] Care Teams Pin Ticket Machine Operator Relationship Specialty Start Date End Date Yudi Guillen MD [address] [place] [phone] PCP - General Internal Medicine 12/30/21
--- OUTSIDE RECORDS SUMMARY | 2025-01-04 14:17 | XMS_ITS | Clinical Summary ---
Author Organization [employer] Address [address] [facility] [place] [address] Care Team Providers Care Clinical Laboratory Manager Name Role Phone Unavailable Primary Care Provider Unavailabl e Allergies Active Allergy Reactions Criticality Noted Date Comments Penicillins Unknown,Hives Low 01/02/2013 Medications Bisacodyl EC 5 MG EC tablet Take 10 mg by mouth at bedtime. 11/24/2023 Active celecoxib (CeleBREX) 200 MG capsule TAKE ONE CAPSULE BY MOUTH TWICE A DAY NEEDED FOR PAIN. TAKE WITH FOOD AND STAY HYDRATED) 07/12/2023 Active mirtazapine (Remeron) 30 MG tablet Take 30 mg by mouth at bedtime. 10/29/2023 Active Active Problems Problem Noted Date Diagnosed Date Periodontal disease 02/04/2024 Dental calculus 02/04/2024 Missing teeth, acquired 02/04/2024 Bleeding gums 02/04/2024 Localized gingival recession 02/04/2024 Contact dermatitis 09/21/2011 Disorder of skeletal muscle 09/21/2011 Migraine 09/21/2011 Pain in joint involving ankle and foot 2 Pain in limb 09/21/2011 Social History Tobacco Use Types Packs/Day Years Used Date Smoking Tobacco: Never Smokeless Tobacco: Never Tobacco Cessation:Counseling Given: Not Answered Alcohol Use Standard Drinks/Week Comments Never 0 (1 standard drink = 0.6 oz pur e alcohol) Comments Unknown Sex and Gender Information Value Date Recorded Sex Assigned at Female 02/16/2022 10:18 AM EDT Legal Sex Female 10:18 AM EDT Gender Identity Female 08/26/2022 10:39 AM EDT Sexual Orientation Straight 12/08/2023 2: 53 PM EDT Last Filed Vital Signs Vital Sign Reading Time Taken Comments Blood Pressure 110/74 02/28/2024 9:27 AM EST Pulse - - Temperature - - Respiratory Rate - - Oxygen Saturation - - Inhaled Oxygen Concentration - - Weight - - Height - - Body Mass Index - - Plan of Treatment Health Maintenance Due Date Last Done Comments CT Colonography 1967 Colonoscopy 1967 Colorectal Cancer Screening 1967 Depression Screening 1967 FIT DNA/Cologuard 1967 FIT 1967 FOBT 1967 HIV Screening 1967 SDOH Screening 1967 Sigmoidoscopy 1967 Disability Screening 1967 Alcohol/Substance Use Screening 1979 Hepatitis C Screening 10/07/1985 Pap Smear 10/07/1988 Cervical Cancer Screening 10/07/1997 HPV/Cotest 10/07/1997 Mammogram 2007 Pneumococcal Vaccine: 50+ Years (1 of 1 - PCV) 10/07/2017 Dental Oral Exam 06/30/2024 12/31/2023, 10/2018, 02/22/2015, Additional history exists Dental Prophylaxis 08/05/2024 02/04/2024, 0 06/12/2019, 08/26/2015, Additional history exists COVID-19 Vaccine ( season) 2024 05/29/2021, 12/17/2020, 11/26/2020 Influenza Vaccine (#1) 2024 , 01/25/2023, 04/21/2021, Additional history exists Dental X-Ray: Bitewings 12/31/2024 12/31/19 24, 01/23/2019, 08/26/2015, Additional history exists Tobacco Screening 02/27/2025 02/28/2024 Dental X-Ray: Full Mouth 12/31/2026 12/31/2023, 10/2018 DTaP/Tdap/Td Vaccines (3 - Td or Tdap) 10/28/2033 10/29/2023, 03/03/2013, 04/08/2006 RSV Patients and Patients Aged 60 years or older (1 - 1-dose 75+ series) 10/07/2042 Hepatitis B Vaccines Completed 01/13/2007, 08/03/2006, 07/01/2006 Zoster Vaccines Completed 01/15/2023, 09/03/2022 HIB Vaccines Aged Out No longer eligi [...] patient's age to complete this topic Meningococcal Vaccine Aged Out No sonia munir eligible based on patient's age to complete this topic RSV under 20 months Aged Out No longe r eligible based on patient's age to complete this topic Rotavirus Vaccines Aged Out No longer eligible based on patient's age to complete this topic Procedures Procedure Name Priority Date/Time Associated Diagnosis Comments PROPHYLAXIS - ADULT Routine 02/04/2024 1 1:00 AM EDT Periodontal disease Dental calculus Bleeding gums INTRAORAL - COMPLETE SERIES OF RADIOGRAPHIC IMAGES Routine 12/31/2023 8:00 AM EDT PERIODIC ORAL EVALUATION - ESTABLISHED PATIENT Routine 12/31/2023 8:00 AM EDT from Last 3 Months or Most Recently Relevant to Health Maintenance Insurance DENTAL - HSN FULL (MEDICAID) DENTAL - HSN PARTIAL (MEDICAID)
--- OUTSIDE RECORDS SUMMARY | 2025-01-04 14:18 | XMS_ITS | Encounter Summary ---
Author Organization [facility] Address [address] [place] [address] Care Team Providers Care Management Associate Name Role Phone Yudi Guillen MD Primary Care Prov ider Reason for Visit * Reason Onset Date Comments UTI 01/04/2025 Encounter Details Date Type Department Care Team ([facility] st Contact Info) Description 01/04/2025 Telephone Adult Medicine [facility] [address] [place] [address] Yudi Guillen MD [address] [place], [place] Social History Tobacco Use Types Packs/Day Years Used Date Smoking Tobacco: Never Smokeless Tobacco: Never Alcohol Use Standard Drinks/Week Comments Never 0 [...] for your loved ones. 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 [...] 6:08 AM EST Sexual Orientation Straight 03/06/2024 6 :08 AM EST documented as of this encounter Progress Notes * Genevieve Sandoval RN - 01/04/2025 10:44 AM EDT Increase freq. Of urination , burning only with urination . Started yesterday , no fever or chills,no visible hematuria or back pain, no weakness. Offered apt in our urgent care it too far advisedurgent care near her number and adres given and advised if symptoms worsen call office if she develops fever,. Back pain , weakness, hematuria to be evaluated in the ER. Pt. agrees * Breanne Gooden - 01/04/2025 10:15 AM EDT Patient call requires triage: Symptoms patient is presenting: Painful urination How long has patient had these symptoms?: day 2 For ALL patients calling to schedule any appointment (routine, sick visit, follow up, consult, etc.) in the outpatient setting please ask the following questions: Do you have fever of higher than 101, sore throat with difficulty swallowing or severe shortness ofbreath? no If YES to any of these above symptoms, send a message to triage and do not book. Red dot. If no, an audio or video visit should be booked. Have you had close contact with someone with Coronavirus in the last 14 days? no Have you traveled abroad? no Have you traveled recently to another state outside of [place], [place], [place], [place], [place], [place], [place]? no o If yes, did you quarantine for 14 days or have a negative covid test? no If yes to any of the above, patient is not to be scheduled in office until after 14 day quarantine or negative covid test. If pain or injury related was it due to an accident at work or from a motor vehicle accident? If yes, date of accident/Injury: No If yes, gather 3rd democrat insurance information [employer] Party Information: not applicable PCP: Yudi Garcia MD Payor: [email or web address] PLAN / Plan: [employer] MEDICAID / Product Type: *No Product type* / documented in this encounter Plan of Treatment Upcoming Encounters Date Type Department Care Team (Late st Contact Info) Description 02/05/2025 8:30 AM EDT Office Visit Adult Medicine [address] [phone] Yudi Guillen MD [address] [place] [address] 02/28/2025 9:30 AM EST Office Visit Orthopedic Surgery - [place] [address] [facility] [address] [place] [phone] Clem Avelar MD 175 [facility] [address] [place] [address] 04/10/2025 10:30 AM EST Consult Bariatric Surgery - [place] [address] [facility] [address] [place] [phone] Lucie Davis MD [address] [place] [phone] 11/13/2025 3:00 PM EDT Office Visit Adult Medicine [address] [phone] Yudi Guillen MD [address] [place], [place] documented as of this encounter Visit Diagnoses Not on filedocumented in this encounter Care Teams Management Associate Relationship Specialty Start Date End Date Yudi Guillen MD [address] [place] [address] PCP - General Internal Medicine 12/30/21 documented as of this encounter
== END 2025-01-04 12:37 | disposition home or self-care (01) ==
PROVIDERS: PCP Internal Medicine; Visit Provider Nurse Practitioner Family
DX: R30.0 Dysuria (principal); Z13.9 Encounter for screening, unspecified

== ENCOUNTER 2025-03-02 07:40 | Outpatient (REF) | payer OTHER, SELFPAY ==
--- OUTSIDE RECORDS SUMMARY | 2025-02-28 09:30 | XMS_ITS | Encounter Summary ---
Author Organization [facility] Address [address] [place] [address] Care Team Providers Care Nursing Home Assistant Administrator Name Role Phone Yudi Guillen MD Primary Care Prov ider Reason for Referral * Consultation (Routine) - Closed Specialty Diagnoses / Procedures Referred By Contact Referred To Contact Physical Medicine and Rehabilitation Diagnoses Chronic bilateral low back pain with bilateral sciatica Clem Avelar MD [address] [address] Phone: tel: fax: Max Becker DO [address] [address] Phone: tel: fax: Referral ID Status Reason Start Date Expiration Date V isits Requested Visits Authorized [id number] Closed Consult and Treat 02/28/2025 02/28/2026 1 1 Reason for Visit * Reason Comments Follow-up TKR 03/16/24 Encounter Details Date Type Department Care Team ([facility] st Contact Info) Description 02/28/2025 9:30 AM EST Office Visit Orthopedic Surgery - [place] [address] [phone] Clem Avelar MD [address] [address] Status post total right knee replacement (Primary Dx); Eczema of lower leg; Neuralgia; Chronic bilateral low back pain with bilateral sciatica Social History Tobacco Use Types Packs/Day Years [...] care for your loved ones. 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 [...] Date Recorded What is your living situation? Unrecognized valu e 08/01/2024 Interpersonal Safety Answer Date Record ed Physical Abuse Unrecognized value 12/26/2024 Verbal Abuse Unrecognized value 12/26/2024 Comments No Sex and Gender Information Value Date Recorded Sex Assigned at Female 03/06/2024 6:08 AM EST Legal Sex Female 6:18 PM EST Gender Identity Female 03/06/2024 6:08 AM EST Sexual Orientation Straight 03/06/2024 6: 08 AM EST documented as of this encounter Last Filed Vital Signs Vital Sign Reading Time Taken Comments Blood Pressure - - Pulse - - Temperature - - Respiratory Rate - - Oxygen Saturation - - Inhaled Oxygen Concentration - - Weight 83.9 kg (185 lb) 02/28/2025 9:20 AM EST Height 160 cm (5' 2.99 ) 02/28/2025 9:20 AM EST Body Mass Index 32.78 02/28/2025 9:20 AM EST documented in this encounter Ordered Prescriptions Prescription Sig Dispense Quantity Refills Last Filled Start Date End Date betamethasone dipropionate (DIPROSONE) 0.05 % creamIndications:E czema of lower leg,Neuralgia,Stat us post total right knee replacement Apply topically 2 (two) times a day. 45 g 2 02/28/2025 documented in this encounter Progress Notes * Clem Avelar MD - 02/28/2025 9:30 AM EST [facility] Date: 02/28/2025 Reason for visit: Status post right TKR 03/06/2024 Supervisor Speech: Georgian - family member Jose David HPI: Mer Tellez is a 59 y.o. year old female 1 year following right knee replacement. I last saw her 08/24/2024 where the knee was feeling so-so . 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 She also has seen her PCP and was having symptoms consistent with right leg radiculopathy and sciatica and was referred to physical therapy. She had a rash involving the inferior lateral incision no evidence of infection. Range of motion 0 to 115 degrees. We discussed the above modalities for the nerve dermatitis and we discussed considering a referral to physiatry if back pain persisted. Reviewed dental recommendations. She is to monitor for progressive symptoms and follow-up in 6 months. She returns today with overall the knee is getting better. She still uses the betamethasone cream once in a while if there is an itch. I did refill her gabapentin and celecoxib recently. She did attend physical therapy for her back which did not help. She continues to have bilateral lower back painwith pain that does radiate into the bilateral posterior thighs and legs. The right knee can feel tight if she stands for longer period time the knee can also be sore. Today she is ambulating unassisted. She denies any recent fevers, chills, sweats, chest pain, shortness of breath. Exam: There were no vitals filed for this visit. Well-appearing mostly Georgian-speaking female, no apparent distress, alert and oriented. Accompanied by family member. On gait examination she walks with a nonantalgic gait unassisted. On examination of the right knee there is a well-healed midline incision. No skin rashes or lesions. There is numbness and hypersensitivity about the lateral aspect of the incision, more global tenderness about the medial knee. No effusion. Knee range of motion 0 to 120 degrees. Knee is stable to varus valgus stress throughout range of motion. Stable to anterior and posterior drawer. 4/5 strengthbilateral IP/Q limited by pain and effort. No asymmetric swelling or hyperemia. Distally neurovascularly intact. On straight leg raise this does produce some pain involving the posterior buttock, thigh, and calf involving the right leg, similar symptoms involving the left leg with straight leg raise. Diffuse tenderness about the bilateral midline and right and left lower spine. Labs: Lab Results Component Value Date WBC 7.3 08/01/2024 HCT 42.1 08/01/2024 PLT 319 08/01/2024 Lab Results Component Value Date NA 137 08/01/2024 K 3.9 08/01/2024 EGFR 105 08/01/2024 ALBUMIN 4.0 08/01/2024 BILITOT 0.6 08/01/2024 AST 10 08/01/2024 ALT 18 08/01/2024 ALKPHOS 112 08/01/2024 HGBA1C 5.4 08/01/2024 No results found for: INR , PTT No results found for: SEDRATE , CRP , RF , URICACID , DIPIKA Imagin views of the right knee obtained today including AP, lateral, sunrise were reviewed. These show right cemented posterior stabilized total knee replacement with patellar resurfacing and short cemented tibial stem. Implants appear well-fixed and well position. No progressive or circumferential radiolucencies, patella tracking centrally without tilt. Assessment: 59-year-old female with s/p right TKR 03/06/24 for moderate valgus osteoarthritis with resolving SKINTED. Chronic lower back pain with bilateral sciatica. Left knee moderate patellofemoral arthritis. Anxiety/insomnia. Allergy to penicillin causes rash. BMI 31. Plan: I discussed my findings, and I reviewed the imaging studies with the patient and her family member.Overall right knee replacement appears to be structurally sound. No evidence of infection, loosening, instability, or focal weakness. I explained that the hypersensitivity about the knee is due to neuralgia. She did demonstrate hypersensitivity prior to her knee replacement surgery, and explained that surgery can potentiate that. Symptoms should continue to improve as the soft tissues heal and accommodate to the knee replacement. This can take several years. I have strongly recommended that shebe massaging the knee soft tissues twice a day for desensitization, and have updated her prescription for betamethasone cream. I recently provided refills for her celecoxib and gabapentin as well, but advised that I do not prescribe long-term pain medications. She does have other sources of pain including her lower back, neck, and hips which have been previously evaluated by her PCP. She does exhibit chronic lower back pain with bilateral sciatica, and I provided an updated referral to physiatry. If chronic pain persists she may benefit from referral to pain management for medical or interventional management of her pain. I offered to update her handicap placard for additional 6 months, butexplained that I would not be extending this since knee replacement is structurally sound and that she has multiple other sources of her pain which limit her mobility. She should monitor for any progressive pain, swelling, erythema or instability involving the right knee. Otherwise we will have herfollow-up in 1 year with repeat x-rays of the right knee. Clem Avelar MD [address] [place] [address], [address] [place] [address] W: [phone] F: [phone] Portions of this note were dictated utilizing the speech recognition software. Electronically Signed By: Clem Avelar MD 02/28/2025 9:07 AM EST documented in this encounter Plan of Treatment Upcoming Encounters Date Type Department Care Team (Late st Contact Info) Description 05/02/2025 9:00 AM EST Consult Bariatric Surgery [facility] 175 [facility] [address] [place] [phone] Bertha Marquez MD [address] [place] [address] 11/13/2025 3:00 PM EDT Office Visit Adult Medicine [address] [phone] Yudi Guillen MD [address] [place] [address] 03/06/2026 9:00 AM EST Office Visit Orthopedic Surgery [place] [address] [phone] Clem Avelar MD [address] [address] Pending Results Name Type Priority Associated Diagnoses Date /Time XR Knee 3 Views Right Imaging Routine Status post total right knee replacement 02/28/2025 9:49 AM EST Scheduled Orders Name Type Priority Associated Diagnoses Orde r Schedule XR Knee 3 Views Right Imaging Routine Status post total right knee replacement Expected: 02/28/2025, Expires: 02/28/2026 Scheduled Referrals Name Type Priority Associated Diagnoses Order Schedule Ambulatory referral to Physical Medicine Rehab Outpatient Referral Routine Chronic bilateral low back pain with bilateral sciatica 1 Occurrences starting 02/28/2025 until 02/28/2026 documented as of this encounter Visit Diagnoses Diagnosis Status post total right knee replacement- Primary Eczema of lower leg Neuralgia Unspecified neuralgia, neuritis, and radiculitis Chronic bilateral low back pain with bilateral sciatica documented in this encounter Discontinued Medications Medication Sig Discontinue Reason Start Date End Da te betamethasone dipropionate (DIPROSONE) 0.05 % creamIndications:Eczema of lower leg Apply topically 2 (two) times a day. Reorder 10/23/2024 02/28/2025 documented as of this encounter Care Teams Nursing Home Assistant Administrator Relationship Specialty Start Date End Date Yudi Guillen MD [address] [place] [phone] PCP - General Internal Medicine 12/30/21 documented as of this encounter
--- NOTE | ~2025-03-02 | MM_ITS ---
EXAMINATION: MM SCREENING DIGITAL BREAST TOMOSYNTHESIS, BILATERAL CLINICAL INFORMATION: Screening. Asymptomatic. COMPARISON: Mammography: Comparison is made with available priors TECHNIQUE: Digital breast mammography with tomosynthesis is performed in both the craniocaudal and mediolateral oblique views along with computer-aided detection (CAD). FINDINGS: There are scattered areas of fibroglandular density. There are no significant masses, abnormal calcifications, or other abnormalities. MM/MM tomosynthesis screening BI IMPRESSION: No mammographic evidence of malignancy. ASSESSMENT: BI-RADS Category 1: Negative RECOMMENDATION: Routine annual mammography screening. 1 year F/U This examination should not preclude the clinical evaluation of a suspicious palpable abnormality. This patient's information was entered into a reminder system with a target due date for their next mammogram. Electronically signed by: Yumiko Merino DO 03/06/2025 09:03 AM [facility]
--- OUTSIDE RECORDS SUMMARY | 2025-03-02 07:42 | XMS_ITS | Clinical Summary ---
Author Organization [facility] Address [address] [place] [address] Phone Care Team Providers Care Entry Level Manufacturing Engineer Name Role Phone Yudi Guillen MD Primary [...] 180 each 1 5 03/03/20 25 Active nystatin-triamci nolone (MYCOLOG II) cream Apply thin layer to [...] spasms. 30 tablet 5 06/16/19 26 Active acetaminophen (TYLENOL) 500 mg tabletIndication s:Status post total right knee replacement Take 2 tablets (1,000 mg total) by mouth every 8 (eight) hours. 100 each 2 5 Active rizatriptan (MAXALT) 10 mg tablet Take 1 tablet (10 mg total) by mouth 1 (one) time each day if needed for migraine. May repeat in 2 hours if needed - 9 tablet 1 5 Active diclofenac (VOLTAREN) 1 % topical gel Apply 4 g topically 4 (four) times a day. 100 g 2 5 Active bisacodyL (DULCOLAX) 5 mg EC tablet Take 2 tablets (10 mg total) by mouth at bedtime. 180 tablet 3 5 Active ondansetron (ZOFRAN) 8 mg tablet Take 1 tablet (8 mg total) by mouth every 8 (eight) hours if needed for nausea or vomiting. 20 tablet 5 Active gabapentin (NEURONTIN) 300 mg capsuleIndicatio ns:Status post total right knee replacement Take 1 capsule (300 mg total) by mouth 2 (two) times a day. 60 each 2 5 Active celecoxib (CeleBREX) 200 mg capsuleIndicatio ns:Status post total right knee replacement Take 1 capsule (200 mg total) by mouth 2 (two) times a day with meals. 60 each 2 5 Active betamethasone dipropionate (DIPROSONE) 0.05 % creamIndications :Eczema of lower leg,Neuralgia,St atus post total right knee replacement Apply topically 2 (two) times a day. 45 g 2 5 Active celecoxib (CeleBREX) 200 mg capsuleIndicatio ns:Status post total right knee replacement Take 1 capsule (200 mg total) by mouth 2 (two) times a day with meals. 60 each 2 5 02/19/20 25 Discontin ued(Reord er) gabapentin (NEURONTIN) 300 mg capsuleIndicatio ns:Status post total right knee replacement Take 1 capsule (300 mg total) by mouth 2 (two) times a day. 60 each 2 5 02/19/20 25 Discontin ued(Reord er) betamethasone dipropionate (DIPROSONE) 0.05 % creamIndications :Eczema of lower leg Apply topically 2 (two) times a day. 30 g 2 5 02/29/20 25 Discontin ued(Reord er) bisacodyL (DULCOLAX) 5 mg EC tablet Take 2 tablets (10 mg total) by mouth at bedtime. 180 tablet 5 02/18/20 25 Discontin ued(Reord er) ondansetron (ZOFRAN) 8 mg tablet Take 1 tablet (8 mg total) by mouth every 8 (eight) hours if needed for nausea or vomiting. 20 tablet 5 02/19/20 25 Discontin ued(Reord er) Active Problems Problem Noted Date Diagnosed Date Chronic bilateral low back pain with bilateral s ciatica 02/28/2025 Pre-syncope 08/21/2024 Intertrigo 08/21/2024 Status post total [...] Encounters Date Type Department Care Team Description 02/28/2025 9:30 AM EST Office Visit Orthopedic Surgery - [facility] [address] [place] [phone] Clem Avelar MD Status post total right knee replacement (Primary Dx); Eczema of lower leg; Neuralgia; Chronic bilateral low back pain with bilateral sciatica 01/04/[address] [phone] Yudi Guillen MD 12/28/[address] [facility] 175 [facility] [address] [phone] Janee Fuentes NP 12/27/[address] [facility] 175 [facility] [address] [phone] Jaiden Forman DO 12/26/2024 8:03 AM EDT Anesthesia Event [facility] Endoscopy [address] [place] [phone] Jhoan Franks MD 12/26/2024 6:56 AM EDT - 12/26/2024 11:59 PM EDT Hospital Encounter [facility] Endoscopy [address] [place] [phone] Jaiden Forman DO Chang, Ling, CRNA Spencer, Mark A, MD Epigastric abdominal pain Discharge Disposition: Home or Self Care from Last 3 Months Immunizations Immunization Administration Dates Next Due Influenza Quadravalent, MDCK [...] for your loved ones. For example, child care associate teacher or elderly care for an older adult? [...] EDT Inhaled Oxygen Concentration - - Weight 83.9 kg (185 lb) 02/28/2025 9:20 AM EST Height 160 cm (5' 2.99 ) 02/28/2025 9:20 AM EST Body Mass Index 32.78 02/28/2025 9:20 AM EST Plan of Treatment Upcoming Encounters Date Type Department Care Team (Late st Contact Info) Description 05/02/2025 9:00 AM EST Consult Bariatric Surgery [facility] 175 [facility] [address] [place] [phone] Bertha Marquez MD [address] [place] [address] 11/13/2025 3:00 PM EDT Office Visit Adult Medicine [address] [phone] Yudi Guillen MD [address] [place] [address] 03/06/2026 9:00 AM EST Office Visit Orthopedic Surgery [place] [address] 175 [facility] [address] [place] [phone] Clem Avelar MD [address] [phone] Health Maintenance Due Date Last Done Comments Cervical Cancer Screening: Pap Smear 10/07/1988 HIV Screening 03/29/2022 Depression Screening 04/19/2024 10/29/2023 COVID-19 Vaccine ( - season) 2024 05/29/2021, 12/17/2020, 11/26/2020 Influenza Vaccine [...] this topic Medical Devices Implanted Type Area Die Grinder Device Identifier Shelf Expiration Date Model / Serial / Lot Cement Bone Simplex Full Dose - Snone - [id number] Implanted:Qty : 2 on 03/06/2024 by Clem Avelar MD at [facility] Bone Cement Right: Knee [employer] [id number] 02/16/2026 6191-1-001 / NONE / [id number] Knee Psn Fem Ps Cmt Ccr Nrw Sz8 R - Snone - [id number] Implanted:Qty : 1 on 03/06/2024 by Clem Avelar MD at [facility] Joints Knee Right: Knee [employer] [id number] 01/19/2031 [id number] / NONE / [id number] Knee Psn Tib Farm Planner Stm 5 Deg Sz Er - Snone - [id number] Implanted:Qty : 1 on 03/06/2024 by Clem Avelar MD at [facility] Joints Knee Right: Knee [employer] [id number] 12/19/2033 [id number] / NONE / [id number] All Poly Patella 35mm - Snone - [id number] Implanted:Qty : 1 on 03/06/2024 by Clem Avelar MD at [facility] Joints Knee Right: Knee [employer] [id number] 09/01/2028 [id number] / NONE / [id number] Knee Psn Asf Ps 12mm Ve R 6-9 Ef - Sn/A - [id number] Implanted:Qty : 1 on 03/06/2024 by Clem Avelar MD at [facility] Joints Knee Right: Knee [employer] [id number] 11/15/2026 [id number] / N/A / [id number] Surgical Mesh Sling Implants Surgical Mesh Sling Implants N/A: Bladder Description:BLADDER MESH Procedures Procedure Name Priority Date/Time Associated Diagnosis Comments ..LAB TO CALL RESULTS Routine 01/04/2025 3:18 PM EDT EGD Routine 12/26/2024 8:17 AM EDT Epigastric [...] Recently Relevant to Health Maintenance Results * Lab use only - Non-affiliated results notification (01/04/2025 3:18 PM EDT) Other Topography unknown / Unknown us Historical Provider LAB BLOOD ORDERABLES Emilee l Result * EGD Anesthesia - MAC; SP ENDOSCOPY (12/26/2024 8:17 AM EDT) Anatomical Region [...] epigastric discomfort. Narrative 12/26/2024 8:18 AM EDT [facility] GI Patient Name: Kathleen Perez Procedure Date: 12/26/2024 7:55 AM Date of : 1965 Age: 59 Gender: Female Note Status: Finalized Attending MD: Jaiden Forman DO, [id number] Procedure Date No Time: 12/26/2024 Procedure: Upper [...] the physician, the nurse, the anesthesiologist, the softball umpire and the parking technician in the pre-procedure area in the [...] was minimal. Wide Area Transepithelial Sampling (WATS-3D [place] Biopsy) was performed for histology and samples sent for Computer-Assisted 3-Dimensional analysis. Estimated blood loss was minimal. The stomach was normal. Biopsies were taken with a cold forceps for histology. Estimated blood loss was minimal. Procedure Code(s): --- Professional --- 19331, Esophagogastroduodenoscopy, flexible, transoral; with biopsy, single or multiple Diagnosis Code(s): --- Professional --- K26.9, Duodenal ulcer, unspecified as acute or chronic, without hemorrhage or perforation R10.13, Epigastric pain CPT copyright 2020 [employer]. All rights reserved. The codes documented in this report are preliminary and upon manufacturing maintenance mechanic review may be revised to meet current compliance requirements. JAIDEN Forman DO 12/26/2024 8:18:11 AM This report has been signed electronically.Jaiden Forman DO Number of Addenda: 0 Note Initiated On: 12/26/2024 7:55 AM Scope In: Scope Out: Endoscopy Department at [facility] - [address] [place] [phone] Procedure Note Jaiden Forman DO - 12/26/2024 [facility] GI Patient Name: Kathleen Perez Procedure Date: 12/26/2024 7:55 AM Date of : 1965 Age: 59 Gender: Female Note Status: Finalized Attending MD: Jaiden Forman DO, [id number] Procedure Date No Time: 12/26/2024 Procedure: Upper [...] the physician, the nurse, the anesthesiologist, the softball umpire and thetechnician in the pre-procedure area in [...] loss was minimal. WideArea Transepithelial Sampling (WATS-3D [place] Biopsy) was performed for histology and samples sent for Computer-Assisted 3-Dimensional analysis. Estimated blood loss was minimal. The stomach was normal. Biopsies were taken with a cold forceps for histology. Estimated blood losswas minimal. Procedure Code(s): --- Professional --- 53590, Esophagogastroduodenoscopy, flexible, transoral; with biopsy, single or multiple Diagnosis Code(s): --- Professional --- K26.9, Duodenal ulcer, unspecified as acute or chronic, without hemorrhage or perforation R10.13, Epigastric pain CPT copyright 2020 [employer]. All rights reserved. The codes documented in this report are preliminary and upon manufacturing maintenance mechanic reviewmay be revised to meet current compliance requirements. JAIDEN Forman DO 12/26/2024 8:18:11 AM This report has been signed electronically.Jaiden Forman DO Number of Addenda: 0 Note Initiated On: 12/26/2024 7:55 AM Scope In: Scope Out: Endoscopy Department at [facility] - [address] [place] [phone] IMPRESSION: - Non-bleeding duodenal ulcers with no stigmata of bleeding. Biopsied. - Normal stomach. Biopsied. Recommendation: - Discharge patient to home. - Resume previous diet. - Continue present medications. - Await pathology results. - Omeprazole 40 mg daily recommended. Today's EGD findings explain her epigastric discomfort. us Jaiden Forman DO GI~PROCEDURE ORDERABLES Final Re [...] with intestinal metaplasia. 12/27/2024 10:46 AM EDT [facility] Gross Description A. Small Intestine, Duodenum, [...] one slide. RJ 12/27/2024 10:46 AM EDT [facility] Disclaimer Unless otherwise specified, all tissue is 10% NB formalin fixed and paraffin embedded. 12/27/2024 10:46 AM EDT [facility] Tissue Duodenal structure / Unknown 12/26/2024 8:12 AM EDT 12/26/2024 10:42 AM EDT Tissue specimen (specimen) Stomach structure / Unknown 12/26/2024 8:13 AM EDT 12/26/2024 10:42 AM EDT Tissue specimen (specimen) Esophageal structure / Unknown 12/26/2024 8:14 AM EDT 12/26/2024 10:42 AM EDT us Jaiden Forman DO LAB PATHOLOGY ORDERABLES Final R esult [facility] [address] [place] [address], * (ABNORMAL) Lipid panel with reflex to direct LDL (11/17/2024 7:45 AM EDT) Cholesterol 233(H) 0 - 200 mg/dL LAB CHEMISTRY METHOD 11/17/2024 10:39 AM EDT [facility] Triglycerides 112 0 - 150 mg/dL LAB CHEMISTRY METHOD 11/17/2024 10:39 AM EDT [facility] HDL 51 >=40 mg/dL LAB CHEMISTRY METHOD 11/17/2024 10:39 AM EDT [facility] LDL Calculated 160(H) 0 - 100 mg/dL LAB CHEMISTRY METHOD 11/17/2024 10:39 AM EDT [facility] VLDL Cholesterol Dickson 22.4 mg/dL LAB CHEMISTRY METHOD 11/17/2024 10:39 AM EDT [facility] Non HDL Chol. (LDL+VLDL) 182(H) <145 mg/dL LAB CHEMISTRY METHOD 11/17/2024 10:39 AM EDT [facility] Chol/HDL Ratio 4.6(H) 0.0 - 4.4 LAB CHEMISTRY METHOD 11/17/2024 10:39 AM EDT [facility] Blood Venous blood specimen / Unknown Venipuncture / Unknown 11/17/2024 7:45 AM EDT 11/17/2024 7:45 AM EDT Result [facility] Yudi Guillen MD LAB BLOOD ORDERABL ES Final Result [facility] [address] [place] [address], [place] [phone] * MG Mammo Digital Diagnostic bilat (02/25/2024 7:51 AM EST) Anatomical Region Laterality Modality Breast Bilateral Mammography Yudi Guillen MD IMG BI PROCEDURES Final Result * Depression Screening (10/29/2023) Pathologist [facility] Depression Screening abstracted Historical Provider HEALTH MAINTENANCE Final Result * Hepatitis C Screening (12/05/2021) Pathologist [facility] Hepatitis C Screening abstracted Historical Provider HEALTH MAINTENANCE Final Result * Colonoscopy (08/15/2018) Pathologist [facility] Colonoscopy no interpretation , abstracted Anatomical Region Laterality Modality Other Historical Provider HEALTH MAINTENANCE Final Result from Last 3 Months or Most Recently Relevant to Health Maintenance Insurance [employer] Care Teams Entry Level Manufacturing Engineer Relationship Specialty Start Date End Date Yudi Guillen MD [address] [place] [phone] PCP - General Internal Medicine 12/30/21
--- OUTSIDE RECORDS SUMMARY | 2025-03-02 07:42 | XMS_ITS | Clinical Summary ---
Author Organization [employer] Address [address] [facility] [address] [place] [address] Care Team Providers Care Medical Secretary Teacher Name Role Phone Unavailable Primary Care Provider [...]
--- OUTSIDE RECORDS SUMMARY | 2025-03-02 07:42 | XMS_ITS | Encounter Summary ---
Author Organization [employer] Address [address] [facility] [address] [place] [address] Care Team Providers Care Spot Worker Name Role Phone Unavailable Primary Care Provider Unavailabl e Encounter Details Date Type Department Care Team (Latest Contact Info) Description 06/12/2019 Abstract [facility] CONVERSIONS Dental, Provider, DDS Social History Tobacco [...]
== END 2025-03-02 07:41 | disposition home or self-care (01) ==
LOC: HO.MAMMO 07:40
PROVIDERS: PCP Internal Medicine; Visit Provider Internal Medicine
DX: Z12.31 Encounter for screening mammogram for malignant neoplasm of breast (principal)
CPT/HCPCS: 77063; 77067

== ENCOUNTER → 2025-03-02 08:00 | Outpatient (BNV) | payer OTHER, SELFPAY | PROVIDERS: PCP Internal Medicine; Visit Provider Internal Medicine | DX: Z12.31 Encounter for screening mammogram for malignant neoplasm of breast (principal) | CPT/HCPCS: 77063; 77067 ==